=== PATIENT | female | born 1960 | race Caucasian/White ===

== ENCOUNTER 2020-05-15 16:57 | Emergency (ER) | payer OTHER ==
[~2020-05-15] VITALS: Ht 160 cm; Wt 67.1 kg
--- NOTE | 2020-05-15 17:03 | NUR ---
PATIENT AMBULATED TO BED 2 AT THIS TIME.
[2020-05-15 17:04] VITALS: BP 133/94
[2020-05-15] MEDS ORDERED: NACL 0.9% 1,000 ML IV ONE (17:15)
[2020-05-15] MEDS ORDERED: KETOROLAC 30 MG/ML VIAL IVP ONE (17:15)
[2020-05-15] MEDS ORDERED: ONDANSETRON 4 MG/2 ML VIAL IVP ONE (17:20)
[2020-05-15] MEDS ORDERED: ONDANSETRON 4 MG ODT PO ONE (17:20)
--- NOTE | 2020-05-15 17:20 | NUR ---
60 YEAR OLD FEMALE COMPLAINS OF LEFT SIDED FLANK/ABDOMINAL PAIN X 3 DAYS. PT ALSO COMPLAINS OF NAUSEA. PT DENIES CHANGE IN DEFECATION, NO VOMITTING OR DIARRHEA. PT AOX4, BREATHING EVEN AND UNLABORED, SKIN WARM AND DRY. BED IN LOWEST POSITION, LOCKED, BED RAIL UPX1. PMH - DENIES ALLERGIES - NKA
[2020-05-15] MEDS ORDERED: cefTRIAXone 1,000 MG VIAL ONE (17:33)
[2020-05-15 17:36] LABS: BASOPHILS % (AUTO) 0.4 % (0.0-2.0); EOSINOPHILS % (AUTO) 0.1 % (0.0-4.0); HEMATOCRIT 40.1 % (36-48); HEMOGLOBIN 13.2 g/dL (12.0-16.0); LYMPHOCYTES # (AUTO) 1.8 K/uL (2.5-16.5); LYMPHOCYTES % (AUTO) 16.3 % (20.5-51.1); MEAN CORPUSCULAR HEMOGLOBIN 30 pg (27-31); MEAN CORPUSCULAR HGB CONC 33 g/dL (33-37); MEAN CORPUSCULAR VOLUME 91.2 fL (80-94); MONOCYTES # (AUTO) 0.8 K/uL (0.8-1.0); MONOCYTES % (AUTO) 7.8 % (1.7-9.3); NEUTROPHILS # (AUTO) 8.2 K/uL (1.8-7.7); NEUTROPHILS % (AUTO) 75.4 % (42.2-75.2); PLATELET COUNT (AUTO) 264 K/uL (140-450); WHITE BLOOD COUNT (AUTO) 10.9 K/uL (4.8-10.8)
[2020-05-15 17:37] LABS: APPEARANCE,URINE SL CLOUDY (CLEAR); BILIRUBIN,URINE NEGATIVE (NEGATIVE); BLOOD, URINE 2+ (NEGATIVE); COLOR,URINE YELLOW (YELLOW); LEUKOCYTE ESTERASE ,URINE 3+ (NEGATIVE); NITRITE, URINE POSITIVE (NEGATIVE); PH,URINE 6.5 (5.0-9.0); UGLUCOSE NEGATIVE (NEGATIVE)
[2020-05-15 17:45] LABS: CREATININE 0.6 mg/dL (0.6-1.3)
[2020-05-15 18:23] LABS: WBC,URINE 60-80 /HPF (0-5)
[2020-05-15 18:50] VITALS: BP 123/66
--- NOTE | 2020-05-15 18:50 | NUR ---
Patient discharged with v/s stable. Written and verbal after care instructions about pyelonephritis given and explained. Patient alert, oriented and verbalized understanding of instructions. Ambulatory with steady gait. All questions addressed prior to discharge. ID band removed. Patient advised to follow up with PMD. Rx of ciprofloxacin and ibuprofen given. Patient educated on indication of medication including possible reaction and side effects. Opportunity to ask questions provided and answered.
--- NOTE | 2020-05-17 15:50 | NUR ---
Urine culture received from lab. Culture and sensitivity received and shown to Dr. Fan. No new orders received. Treatment appropriate. No further care needed. Copy of C&S placed in discrepancy folder.
== END 2020-05-15 18:50 | disposition home or self-care (01) ==
LOC: MED 16:57
DX: N10 Acute pyelonephritis (principal)
CPT/HCPCS: 36415; 74176; 80048; 81001; 81025; 83605; 85025; 87040; 87086; 87186; 96365; 96375; 99284; J0696; J1885; J2405; J7030; 96361; 96374